=== PATIENT | female | born 1995 | race Caucasian/White ===

== ENCOUNTER → 2016-11-20 | Outpatient (CLI) | payer OTHER ==
--- NOTE | 2016-11-20 14:33 | Diagnostic Imaging Report ---
INDICATION: Pelvic and perineal pain. Multiple real-time grayscale as are obtained through the pelvis transabdominally and transvaginally. COMPARISON: None available. The uterus is 6.1 x 3.1 x 4.5 cm. It is anteflexed. The myometrium is normal. The maximum endometrial thickness was 8 millimeter. No free fluid is identified. The right ovary was 2.6 x 1.2 x 1.5 cm and the left is 2.5 x 1.5 x 1.3 cm. Small follicles are present in both ovaries. No adnexal mass. IMPRESSION: 1. Negative pelvic ultrasound Dictated by: Dictated on workstation # [id number]
== END ==
LOC: RAD 13:33
PROVIDERS: ATTEND Physician Assistant
DX: R10.2 Pelvic and perineal pain (principal)
CPT/HCPCS: 76830; 76856